=== PATIENT | male | born 1970 | race Caucasian/White ===

== ENCOUNTER 2021-03-20 09:32 | Outpatient (CLI) | payer OTHER ==
[2021-03-20 10:44] LABS: #Basophils 0.1 10x3/uL (0.0-0.2); #Eosinphils 0.1 10x3/uL (0.0-0.5); #Monocytes 0.9 10x3/uL (0.0-1.1); #Neutrophils 7.2 10x3/uL (1.5-8.4); %Basophils 1.2 % (0.0-2.0); %Eosinophils 0.7 % (0.0-6.0); %Monocytes 7.6 % (0.0-10.0); %Neutrophils 63.5 % (40.0-75.0); Hemoglobin 14.7 g/dL (13.5-17.5); Mean Corpuscular HGB CONC 34.9 g/dL (32.0-36.0); Mean Corpuscular Hemoglobin 34.6 pg (27.0-33.0); Mean Corpuscular Volume 99.1 fl (81.2-95.1); Mean Platelet Volume 9.4 fl (7.4-10.4); Platelet Count 247 10x3/uL (150-450); Red Blood Cell (RBC) Count 4.25 10x6/uL (4.32-5.72); White Blood Cell (WBC) Count 11.4 10x3/uL (3.5-10.5)
[2021-03-20 10:54] LABS: Anion Gap 14 mmol/L (10-20); BUN (Urea Nitrogen) 13 mg/dL (8.4-25.7); Calc. Creatinine Clearance 0 mL/min (70-130); Calcium 9.1 mg/dL (7.8-10.44); Carbon Dioxide 23 mmol/L (22-29); Chloride 106 mmol/L (98-107); Glucose 222 mg/dL (70-105); Potassium 3.8 mmol/L (3.5-5.1); Sodium 139 mmol/L (136-145)
[2021-03-21 01:01] LABS: SARS-CoV-2 PCR by NAA Not Detected (NotDetected)
== END 2021-03-20 09:33 | disposition home or self-care (01) ==
LOC: LABBT 09:32
PROVIDERS: ATTEND Specialist
DX: Z01.818 Encounter for other preprocedural examination (principal); C61 Malignant neoplasm of prostate; Z20.822 Contact with and (suspected) exposure to COVID-19
CPT/HCPCS: 80048; 85025; 93005; 93010; U0003; U0005

== ENCOUNTER 2021-03-23 12:01 | Day surgery (SDC) | payer OTHER ==
[2021-03-21 13:52] VITALS: BMI 32.8
[2021-03-23] MEDS ORDERED: Ketorolac Tromethamine 30 MG/ML VIAL ONE ×2 (12:25→15:30)
[2021-03-23] MEDS ORDERED: Acetaminophen 500 MG TAB ONE (12:25)
[2021-03-23] MEDS ORDERED: Fentanyl 100 MCG/2 ML VIAL ONE (15:04)
[2021-03-23] MEDS ORDERED: Lidocaine 1% (PF) 30 ML VIAL ONE (15:11)
[2021-03-23] MEDS ORDERED: Bupivacaine 0.25% HCL 30 ML VIAL ONE (15:11)
[2021-03-23] MEDS ORDERED: Lidocaine 1% w/Epinephrine 1:100K 30 ML VIAL ONE (15:11)
[2021-03-23] MEDS ORDERED: PHENYLEPHRINE-NS 100 MCG/ML 10 ML SYRINGE ONE (15:30)
[2021-03-23] MEDS ORDERED: Ondansetron PF 4 MG/2 ML Vial ONE (15:30)
[2021-03-23] MEDS ORDERED: Dexamethasone 20 MG/5 ML VIAL ONE (15:30)
[2021-03-23] MEDS ORDERED: PROPOFOL 200 MG/20 ML VIAL ONE (15:30)
[2021-03-23] MEDS ORDERED: Lidocaine 1% PF 5 ML VIAL ONE (15:30)
== END 2021-03-23 18:05 | disposition home or self-care (01) ==
LOC: SDC 12:01
PROVIDERS: ATTEND Specialist
PROC: 02HV33Z Insertion of Infusion Device into Superior Vena Cava, Percutaneous Approach (ICD-10-PCS; principal; 2021-03-23)
PROC: 0JH60WZ Insertion of Totally Implantable Vascular Access Device into Chest Subcutaneous Tissue and Fascia, Open Approach (ICD-10-PCS; principal; 2021-03-23)
DX: C61 Malignant neoplasm of prostate (principal); C79.51 Secondary malignant neoplasm of bone; I10 Essential (primary) hypertension; E11.9 Type 2 diabetes mellitus without complications; E78.5 Hyperlipidemia, unspecified; L40.9 Psoriasis, unspecified; K21.9 Gastro-esophageal reflux disease without esophagitis; G47.33 Obstructive sleep apnea (adult) (pediatric); Z87.891 Personal history of nicotine dependence; Z79.82 Long term (current) use of aspirin; Z79.84 Long term (current) use of oral hypoglycemic drugs; Z79.899 Other long term (current) drug therapy; Z01.818 Encounter for other preprocedural examination; Z20.822 Contact with and (suspected) exposure to COVID-19
CPT/HCPCS: 71045; 76000; 80048; 85025; 93005; 93010; C1788; J0690; J1100; J1642; J1885; J2001; J2405; J2704; J3010; S0020; U0003; U0005

== ENCOUNTER 2021-12-20 08:56 | Outpatient (CLI) | payer BC ==
[2021-12-20 09:28] LABS: Estimated GFR-MDRD - POC Greater than 90
== END 2021-12-20 08:57 | disposition home or self-care (01) ==
LOC: CT 08:56
PROVIDERS: ATTEND Internal Medicine Hematology & Oncology
DX: C61 Malignant neoplasm of prostate (principal); C79.51 Secondary malignant neoplasm of bone
CPT/HCPCS: 71260; 74177; 78306; 82565; A9503

== ENCOUNTER 2022-03-11 08:13 | Outpatient (CLI) | payer BC ==
[2022-03-11] MEDS ORDERED: Iopamidol 370 76% 100 ML VIAL ONE (09:40)
== END 2022-03-11 08:14 | disposition home or self-care (01) ==
LOC: CT 08:13
PROVIDERS: ATTEND Internal Medicine Hematology & Oncology
DX: C61 Malignant neoplasm of prostate (principal); C79.51 Secondary malignant neoplasm of bone; R91.8 Other nonspecific abnormal finding of lung field; E27.8 Other specified disorders of adrenal gland; K76.0 Fatty (change of) liver, not elsewhere classified
CPT/HCPCS: 71260; 74177; 78306; A9503; Q9967

== ENCOUNTER 2022-08-23 12:56 | Outpatient (CLI) | payer BC | END 2022-08-23 12:57 | disposition home or self-care (01) | LOC: SCSRAD 12:56 | PROVIDERS: ATTEND Internal Medicine Hematology & Oncology | DX: M79.651 Pain in right thigh (principal); M79.652 Pain in left thigh; C61 Malignant neoplasm of prostate; C79.51 Secondary malignant neoplasm of bone; R10.2 Pelvic and perineal pain; M54.50 Low back pain, unspecified | CPT/HCPCS: 72100; 72170 ==

== ENCOUNTER 2022-10-04 21:07 | Observation (INO) | payer BC ==
[2022-10-04 23:47] LABS: Hemoglobin 12.9 g/dL (14.0-18.0); Mean Corpuscular HGB CONC 33.7 g/dL (32.0-36.0); Mean Corpuscular Hemoglobin 33.6 pg (27.0-31.0); Mean Corpuscular Volume 99.8 fl (78.0-98.0); Mean Platelet Volume 6.7 fL (7.4-10.4); Platelet Count 254 10x3/uL (130-400); RBC Distribution Width 17.2 % (11.5-14.5); Red Blood Cell (RBC) Count 3.83 mill/uL (4.70-6.10)
[2022-10-04 23:52] LABS: ALT (SGPT) 25 U/L (8-55); AST (SGOT) 15 U/L (5-34); Albumin 3.9 g/dL (3.5-5.0); Alkaline Phosphatase 424 U/L (40-110); Anion Gap 17 mmol/L (10-20); BUN (Urea Nitrogen) 20 mg/dL (8.4-25.7); Bilirubin, Total 0.3 mg/dL (0.2-1.2); Calc. Creatinine Clearance 0 mL/min (70-130); Calcium 7.7 mg/dL (7.8-10.44); Carbon Dioxide 24 mmol/L (22-29); Chloride 101 mmol/L (98-107); Estimated GFR 113; Globulin 2.9 g/dL (2.4-3.5); Glucose 187 mg/dL (70-105); Potassium 3.7 mmol/L (3.5-5.1); Protein, Total 6.8 g/dL (6.0-8.3); Sodium 138 mmol/L (136-145)
[2022-10-05 00:25] LABS: Anisocytosis SLIGHT = 6-15 cells (100X) (0-5/hpf); Band 7 % (5-11); Lymphocytes 7 % (21-51); MDiff Complete? YES; Macrocytosis SLIGHT = 6-15 cells (100X) (0-5/hpf); Metamyelocyte 7 % (0-0); Monocytes 10 % (0-10); Myelocyte 1 % (0-0); Neutrophil 68 % (42-75); Nucleated RBC 2 % (0); Platelet Morphology Comment Appears Adequate; Polychromasia MODERATE = 3-4 cells (100X) (0-2/hpf); White Blood Cell (WBC) Count 24.1 10x3/uL (4.8-10.8)
[2022-10-05] MEDS ORDERED: Piperacillin/Tazobactam 4.5 GM VIAL ONE (00:58)
[2022-10-05] MEDS ORDERED: Ondansetron PF 4 MG/2 ML Vial ONE (00:58)
[2022-10-05] MEDS ORDERED: Morphine 4 MG/ML VIAL ONE ×2 (00:58→01:36)
[2022-10-05 01:49] LABS: PTT 23.2 sec (22.9-36.1); Prothrombin Time 13.6 sec (12.0-14.7)
[2022-10-05] MEDS ORDERED: Vancomycin 1 GM/200 ML (FROZEN) BAG ONE (02:46)
[2022-10-05 03:50] VITALS: BMI 29.5
[2022-10-05] MEDS ORDERED: HYDROcodone/Acetaminophen 10/325 mg Tablet PO PRN (05:31)
[2022-10-05] MEDS ORDERED: Furosemide 20 MG TAB PO SCH ×2 (06:00→09:00)
[2022-10-05] MEDS ORDERED: Amlodipine 10 MG TAB PO SCH (09:00)
[2022-10-05] MEDS ORDERED: Non-Formulary Item 1 EACH (Omeprazole [Omeprazole] 20 MG Capsule.Dr) PO SCH (09:00)
[2022-10-05] MEDS ORDERED: Hydrochlorothiazide 25 MG TAB PO SCH (09:00)
[2022-10-05] MEDS ORDERED: Senokot S 8.6-50 MG TAB PO PRN (11:09)
[2022-10-05] MEDS ORDERED: Bisacodyl 5 MG TAB PO PRN (11:09)
[2022-10-05] MEDS ORDERED: Furosemide 20 MG/2 ML VIAL SLOW IVP SCH ×2 (11:30→16:00)
[2022-10-05] MEDS ORDERED: Albumin 25% 25 GM/100 ML BOT IVPB SCH (11:30)
[2022-10-05] MEDS: Carvedilol 3.125 MG TAB PO SCH ×2 (11:33→21:02)
[2022-10-05] MEDS: Valsartan 80 MG TAB PO SCH (11:33)
[2022-10-05] MEDS: Cephalexin 250 MG CAP PO SCH ×2 (11:36→18:12)
[2022-10-05] MEDS: Hydrochlorothiazide 25 MG TAB PO SCH (11:36)
[2022-10-05] MEDS ORDERED: Dexamethasone 4 MG TAB PO SCH (11:45)
[2022-10-05] MEDS ORDERED: Morphine ER 30 MG TAB PO SCH (11:45)
[2022-10-05] MEDS ORDERED: Empagliflozin 25 MG TAB PO SCH (11:45)
[2022-10-05] MEDS: HYDROcodone/Acetaminophen 10/325 mg Tablet PO SCH ×2 (13:39→18:12)
[2022-10-05] MEDS ORDERED: Aspirin 81 mg Enteric Coated Tablet PO SCH (21:00)
[2022-10-05] MEDS ORDERED: metFORMIN XR 500 MG TAB PO SCH (21:00)
[2022-10-05] MEDS ORDERED: Tamsulosin HCl 0.4 MG CAP PO SCH (21:00)
[2022-10-05] MEDS: Famotidine 20 MG TAB PO SCH (21:02)
[2022-10-05] MEDS: Morphine ER 30 MG TAB PO SCH (21:02)
[2022-10-06] MEDS: Cephalexin 250 MG CAP PO SCH ×2 (00:01→06:11)
[2022-10-06] MEDS: HYDROcodone/Acetaminophen 10/325 mg Tablet PO SCH ×2 (00:01→06:12)
[2022-10-06] MEDS ORDERED: Furosemide 20 MG TAB PO SCH (06:00)
[2022-10-06] MEDS ORDERED: Furosemide 20 MG/2 ML VIAL SLOW IVP SCH (06:00)
[2022-10-06 06:24] LABS: Hemoglobin 11.7 g/dL (14.0-18.0); Mean Corpuscular HGB CONC 35.1 g/dL (32.0-36.0); Mean Corpuscular Hemoglobin 34.4 pg (27.0-31.0); Mean Corpuscular Volume 98.1 fl (78.0-98.0); Mean Platelet Volume 6.8 fL (7.4-10.4); Platelet Count 222 10x3/uL (130-400); RBC Distribution Width 17.5 % (11.5-14.5); White Blood Cell (WBC) Count 19.4 10x3/uL (4.8-10.8)
[2022-10-06 06:27] LABS: Anion Gap 14 mmol/L (10-20); BUN (Urea Nitrogen) 29 mg/dL (8.4-25.7); Calc. Creatinine Clearance 208 mL/min (70-130); Calcium 7.7 mg/dL (7.8-10.44); Carbon Dioxide 28 mmol/L (22-29); Chloride 97 mmol/L (98-107); Estimated GFR 113; Glucose 127 mg/dL (70-105); Potassium 3.2 mmol/L (3.5-5.1); Sodium 136 mmol/L (136-145)
[2022-10-06 06:50] LABS: Band 10 % (5-11); Lymphocytes 12 % (21-51); MDiff Complete? YES; Metamyelocyte 4 % (0-0); Monocytes 5 % (0-10); Myelocyte 5 % (0-0); Neutrophil 64 % (42-75); Nucleated RBC 1 % (0)
[2022-10-06] MEDS ORDERED: Potassium Bicarbonate/Cit Ac 20 MEQ TAB PO SCH (07:30)
[2022-10-06] MEDS ORDERED: Dexamethasone 4 MG TAB PO SCH (08:00)
[2022-10-06 08:45] VITALS: TEMP 97.7
[2022-10-06] MEDS ORDERED: Empagliflozin 25 MG TAB PO SCH (09:00)
[2022-10-06] MEDS: Morphine ER 30 MG TAB PO SCH (09:00)
[2022-10-06] MEDS: Famotidine 20 MG TAB PO SCH (09:02)
[2022-10-06] MEDS: Carvedilol 3.125 MG TAB PO SCH (09:28)
[2022-10-06] MEDS: Hydrochlorothiazide 25 MG TAB PO SCH (09:28)
[2022-10-06] MEDS: Valsartan 80 MG TAB PO SCH (09:29)
[2022-10-06 09:37] VITALS: BP 117/79
[2022-10-06] MEDS ORDERED: Relugolix [Orgovyx] 120 MG Tablet PO SCH (15:00)
== END 2022-10-06 11:25 | disposition home or self-care (01) ==
LOC: ERS 21:07 → MSONC 10-05 01:47
PROVIDERS: ADMIT Hospitalist; ATTEND Hospitalist
DX: L03.116 Cellulitis of left lower limb (principal); L03.115 Cellulitis of right lower limb; I10 Essential (primary) hypertension; E11.9 Type 2 diabetes mellitus without complications; E78.5 Hyperlipidemia, unspecified; K21.9 Gastro-esophageal reflux disease without esophagitis; D72.829 Elevated white blood cell count, unspecified; C61 Malignant neoplasm of prostate; C79.9 Secondary malignant neoplasm of unspecified site; Z87.891 Personal history of nicotine dependence; Z79.2 Long term (current) use of antibiotics; Z79.82 Long term (current) use of aspirin; Z79.84 Long term (current) use of oral hypoglycemic drugs; Z79.818 Long term (current) use of other agents affecting estrogen receptors and estrogen levels; Z79.891 Long term (current) use of opiate analgesic; Z79.899 Other long term (current) drug therapy
CPT/HCPCS: 36415; 71045; 80048; 80053; 83605; 85025; 85610; 85730; 87040; 96365; 96367; 96375; 96376; G0378; J1940; J2270; J2405; J2543; J3370-JW; J8540; P9047

== ENCOUNTER 2022-11-27 11:36 | Outpatient (CLI) | payer BC | END 2022-11-27 11:37 | disposition home or self-care (01) | LOC: SCSMRI 11:36 | PROVIDERS: ATTEND Internal Medicine Hematology & Oncology | DX: C61 Malignant neoplasm of prostate (principal); C79.51 Secondary malignant neoplasm of bone; H93.19 Tinnitus, unspecified ear; H92.09 Otalgia, unspecified ear; G89.3 Neoplasm related pain (acute) (chronic); G93.6 Cerebral edema | CPT/HCPCS: 70553 ==

== ENCOUNTER 2023-03-19 09:21 | Inpatient (IN) | payer BC ==
[2023-03-19] MEDS ORDERED: fentaNYL 50 mcg/mL 1 mL Vial ONE ×3 (09:34→12:36)
[2023-03-19] MEDS ORDERED: Ondansetron PF 4 MG/2 ML Vial ONE (09:34)
[2023-03-19 09:46] LABS: #Monocytes 0.9 thou/uL (0.11-0.59); #Neutrophils 4.4 thou/uL (1.40-6.50); %Basophils 0.4 % (0.0-1.0); %Eosinophils 0.4 % (0.0-10.0); %Lymphocytes 20.4 % (21.0-51.0); %Monocytes 12.2 % (0.0-10.0); %Neutrophils 61.8 % (42.0-75.0); Hematocrit 26.1 % (42.0-52.0); Hemoglobin 8.6 g/dL (14.0-18.0); Mean Corpuscular Hemoglobin 33.9 pg (27.0-31.0); Mean Corpuscular Volume 102.8 fl (78.0-98.0); RBC Distribution Width 20.1 % (11.5-14.5); Red Blood Cell (RBC) Count 2.54 mill/uL (4.70-6.10); White Blood Cell (WBC) Count 7.1 10x3/uL (4.8-10.8)
[2023-03-19 09:53] LABS: Platelet Count 4 10x3/uL (130-400)
[2023-03-19] MEDS ORDERED: HYDROmorphone 0.5 MG/0.5 ML SYRINGE ONE (10:10)
[2023-03-19 10:12] LABS: Troponin I Less than 0.010 ng/mL (< 0.028)
[2023-03-19 10:14] LABS: ALT (SGPT) 49 U/L (8-55); AST (SGOT) 69 U/L (5-34); Albumin 3.7 g/dL (3.5-5.0); Alkaline Phosphatase 917 U/L (40-110); Anion Gap 19 mmol/L (10-20); BUN (Urea Nitrogen) 28 mg/dL (8.4-25.7); Bilirubin, Total 1.1 mg/dL (0.2-1.2); Calc. Creatinine Clearance 0 mL/min (70-130); Carbon Dioxide 22 mmol/L (22-29); Chloride 100 mmol/L (98-107); Estimated GFR 111; Globulin 3.3 g/dL (2.4-3.5); Glucose 142 mg/dL (70-105); Lipase 5 U/L (8-78); Potassium 3.8 mmol/L (3.5-5.1); Sodium 137 mmol/L (136-145)
[2023-03-19] MEDS ORDERED: Cefepime 2 GM VIAL ONE (11:22)
[2023-03-19] MEDS ORDERED: AFRIN NASAL MIST 15 ML BOT NS PRN (11:24)
[2023-03-19 11:26] LABS: Bacteria/HPF None Seen HPF (None Seen); Bilirubin Negative (Negative); Blood, Urine Trace (Negative); CAUTI Indications for Culture Immunosuppressed; Clarity Clear (Clear); Glucose, Urine (Dipstick) Greater than 1000 mg/dL (Negative); Ketone, Urine 150 mg/dL (Negative); Leukocyte Negative Leu/uL (Negative); Nitrite Negative (Negative); Protein, Urine (Dipstick) Negative (Neg-Trace); RBC/HPF 0-3 HPF (0-3); Specific Gravity, Urine 1.026 (1.002-1.036); Squamous Epithelial None Seen HPF (0-3); Urobilinogen Normal mg/dL (Less than 2); WBC/HPF 0-3 HPF (0-3)
[2023-03-19] MEDS ORDERED: Dextrose 50% Abboject 50 ML SYRINGE SLOW IVP PRN (11:27)
[2023-03-19] MEDS ORDERED: HumaLOG 300 UNITS/3 ML VIAL SC PRN ×2 (11:27)
[2023-03-19] MEDS ORDERED: Glucagon 1 MG/ML KIT IM PRN (11:27)
[2023-03-19] MEDS ORDERED: Dextrose 5% in Water 1,000 ML IV PRN (11:27)
[2023-03-19 11:28] LABS: Urine Culture Reflex Yes Yes
[2023-03-19] MEDS ORDERED: Calcium Carbonate 500 MG ChewTAB PO PRN (11:30)
[2023-03-19] MEDS ORDERED: Ondansetron ODT 4 MG TAB PO PRN (11:30)
[2023-03-19] MEDS ORDERED: Ondansetron PF 4 MG/2 ML Vial IVP PRN (11:30)
[2023-03-19] MEDS ORDERED: Sodium Chloride 0.9% 1,000 ML IV SCH (11:30)
[2023-03-19] MEDS ORDERED: Morphine 2 MG/ML VIAL SLOW IVP PRN ×2 (11:32→12:24)
[2023-03-19] MEDS ORDERED: Methyl Salicylate/Menthol 85 GM TUBE TOP PRN (12:10)
[2023-03-19] MEDS ORDERED: OxyCODONE IR 30 MG TAB PO PRN ×2 (12:15→12:23)
[2023-03-19] MEDS ORDERED: Polyethylene Glycol 3350 17 GM Packet PO PRN (12:17)
[2023-03-19] MEDS ORDERED: LORazepam 2 MG/ML SYR.(CARPUJECT) ONE (12:17)
[2023-03-19] MEDS ORDERED: Vancomycin 1 GM/200 ML (FROZEN) BAG ONE (12:17)
[2023-03-19] MEDS ORDERED: Morphine ER 15 MG TAB PO SCH ×3 (12:30→21:00)
[2023-03-19] MEDS ORDERED: Morphine ER 30 MG TAB PO SCH ×2 (12:30→21:00)
[2023-03-19] MEDS ORDERED: Dexamethasone 1 MG TAB PO SCH (12:30)
[2023-03-19] MEDS ORDERED: Aluminum & Magnesium Hydroxide 60 ML, Lidocaine 2% Viscous Solution 30 ML, diphenhydrAM... SSW PRN (12:32)
[2023-03-19 13:51] LABS: INR-International Normal Ratio 1.1; Prothrombin Time 14.6 sec (12.0-14.7)
[2023-03-19 13:52] LABS: PTT 33.8 sec (22.9-36.1)
[2023-03-19] MEDS: Carvedilol 6.25 MG TAB PO SCH (16:14)
[2023-03-19] MEDS: Sodium Chloride 0.65% Nasal 44 ML BOT EA NARE SCH ×2 (16:14→20:40)
[2023-03-19] MEDS ORDERED: Morphine 4 MG/ML VIAL SLOW IVP SCH (16:30)
[2023-03-19] MEDS ORDERED: Morphine 4 MG/ML VIAL SLOW IVP PRN (16:33)
[2023-03-19 17:46] VITALS: BMI 26.2
[2023-03-19] MEDS: Multivit, Therapeutic 1 TAB PO SCH (20:41)
[2023-03-19] MEDS: Tamsulosin HCl 0.4 MG CAP PO SCH (20:41)
[2023-03-19] MEDS: Cyanocobalamin (Vitamin B-12) 1,000 MCG TAB PO SCH (20:41)
[2023-03-19] MEDS: Doxycycline 100 MG CAP PO SCH (20:41)
[2023-03-19] MEDS: Folic Acid 1 MG TAB PO SCH (20:41)
[2023-03-19] MEDS: Senokot S 8.6-50 MG TAB PO SCH (20:42)
[2023-03-19] MEDS: Morphine ER 30 MG TAB PO SCH (20:42)
[2023-03-19] MEDS: oxyCODONE 5 MG TAB PO PRN (20:43)
[2023-03-19] MEDS: Bacitracin Zinc Ointment 30 gm TUBE TOP SCH (20:44)
[2023-03-19] MEDS ORDERED: BACITRACIN ZINC TP SCH (21:00)
[2023-03-19] MEDS ORDERED: Famotidine 20 MG TAB PO SCH (21:00)
[2023-03-20] MEDS: Cefepime 2 GM in Sodium Chloride 0.9% 100 ML IVPB SCH ×2 (00:43→11:18)
[2023-03-20] MEDS: oxyCODONE 5 MG TAB PO PRN ×5 (00:43→19:46)
[2023-03-20] MEDS: Acetaminophen 325 MG TAB PO PRN ×2 (02:07→18:10)
[2023-03-20 03:56] LABS: Hematocrit 23.5 % (42.0-52.0); Hemoglobin 7.4 g/dL (14.0-18.0); Mean Corpuscular HGB CONC 31.5 g/dL (32.0-36.0); Mean Corpuscular Hemoglobin 33.5 pg (27.0-31.0); Mean Platelet Volume 11.8 fL (7.4-10.4); RBC Distribution Width 20.1 % (11.5-14.5); Red Blood Cell (RBC) Count 2.21 mill/uL (4.70-6.10); White Blood Cell (WBC) Count 6.5 10x3/uL (4.8-10.8)
[2023-03-20 04:03] LABS: Platelet Count 12 10x3/uL (130-400)
[2023-03-20 04:04] LABS: Delete Auto Diff?? YES; Manual Diff?? YES
[2023-03-20 04:05] LABS: Mean Corpuscular Volume 106.3 fl (78.0-98.0)
[2023-03-20 04:17] LABS: Phosphorus 2.7 mg/dL (2.3-4.7)
[2023-03-20 04:22] LABS: ALT (SGPT) 38 U/L (8-55); AST (SGOT) 41 U/L (5-34); Albumin 3.3 g/dL (3.5-5.0); Alkaline Phosphatase 709 U/L (40-110); Anion Gap 19 mmol/L (10-20); BUN (Urea Nitrogen) 22 mg/dL (8.4-25.7); Bilirubin, Total 0.8 mg/dL (0.2-1.2); Calc. Creatinine Clearance 155 mL/min (70-130); Calcium 8.7 mg/dL (7.8-10.44); Carbon Dioxide 15 mmol/L (22-29); Chloride 107 mmol/L (98-107); Estimated GFR 107; Glucose 139 mg/dL (70-105); Magnesium 2.2 mg/dL (1.6-2.6); Protein, Total 6.3 g/dL (6.0-8.3); Sodium 137 mmol/L (136-145)
[2023-03-20 04:41] LABS: Anisocytosis MODERATE=16-30 cells HPF (0-5); Band 5 % (5-11); Burr Cells SLIGHT = 2-5 cells HPF (0-1); CellaVision Operator ID lab.sh2; Lymphocytes 16 % (21-51); Macrocytosis MODERATE=16-30 cells HPF (0-5); Monocytes 13 % (0-10); Neutrophil 66 % (42-75); Platelet Adequacy Comment Significant decrease; Polychromasia SLIGHT = 2-3 cells HPF (0-2); Reactive Lymphocytes 1 % (0-10); Smudge Cells 14.7 %; Total Cell Count 109
[2023-03-20] MEDS: Carvedilol 6.25 MG TAB PO SCH ×2 (09:34→17:06)
[2023-03-20] MEDS: Senokot S 8.6-50 MG TAB PO SCH ×2 (09:34→21:15)
[2023-03-20] MEDS: Empagliflozin 25 MG TAB PO SCH (09:35)
[2023-03-20] MEDS: Morphine ER 30 MG TAB PO SCH ×2 (09:35→21:15)
[2023-03-20] MEDS: Doxycycline 100 MG CAP PO SCH (09:35)
[2023-03-20] MEDS: Sodium Chloride 0.65% Nasal 44 ML BOT EA NARE SCH ×3 (09:36→21:13)
[2023-03-20] MEDS: Bacitracin Zinc Ointment 30 gm TUBE TOP SCH ×3 (09:36→21:14)
[2023-03-20] MEDS: Temazepam 15 MG CAP PO PRN (21:14)
[2023-03-20] MEDS: Multivit, Therapeutic 1 TAB PO SCH (21:15)
[2023-03-20] MEDS: Folic Acid 1 MG TAB PO SCH (21:15)
[2023-03-20] MEDS: Cyanocobalamin (Vitamin B-12) 1,000 MCG TAB PO SCH (21:15)
[2023-03-20] MEDS: Tamsulosin HCl 0.4 MG CAP PO SCH (21:16)
[2023-03-21] MEDS: oxyCODONE 5 MG TAB PO PRN ×2 (01:31→04:45)
[2023-03-21] MEDS: Acetaminophen 325 MG TAB PO PRN (02:29)
[2023-03-21 04:04] LABS: Hematocrit 20.7 % (42.0-52.0); Mean Corpuscular HGB CONC 33.8 g/dL (32.0-36.0); Mean Corpuscular Volume 100.5 fl (78.0-98.0); RBC Distribution Width 19.7 % (11.5-14.5); Red Blood Cell (RBC) Count 2.06 mill/uL (4.70-6.10); White Blood Cell (WBC) Count 5.4 10x3/uL (4.8-10.8)
[2023-03-21 04:16] LABS: Platelet Count 12 10x3/uL (130-400)
[2023-03-21 04:17] LABS: Delete Auto Diff?? YES; Manual Diff?? YES
[2023-03-21 04:27] LABS: ALT (SGPT) 42 U/L (8-55); AST (SGOT) 42 U/L (5-34); Albumin 3.3 g/dL (3.5-5.0); Alkaline Phosphatase 701 U/L (40-110); Anion Gap 13 mmol/L (10-20); BUN (Urea Nitrogen) 27 mg/dL (8.4-25.7); Bilirubin, Total 0.8 mg/dL (0.2-1.2); Calc. Creatinine Clearance 203 mL/min (70-130); Calcium 9.4 mg/dL (7.8-10.44); Carbon Dioxide 23 mmol/L (22-29); Chloride 105 mmol/L (98-107); Estimated GFR 117; Globulin 2.9 g/dL (2.4-3.5); Glucose 166 mg/dL (70-105); Potassium 3.9 mmol/L (3.5-5.1); Protein, Total 6.2 g/dL (6.0-8.3); Sodium 137 mmol/L (136-145)
[2023-03-21 05:06] LABS: Anisocytosis SLIGHT = 6-15 cells HPF (0-5); Band 10 % (5-11); CellaVision Operator ID lab.abc; Eosinophils 1 % (0-10); Lymphocytes 11 % (21-51); Macrocytosis SLIGHT = 6-15 cells HPF (0-5); Monocytes 9 % (0-10); Myelocyte 1 % (0-0); Neutrophil 69 % (42-75); Platelet Adequacy Comment Platelets Decreased; Smudge Cells 8.6 %; Total Cell Count 105
[2023-03-21] MEDS: Morphine ER 30 MG TAB PO SCH ×2 (08:52→21:07)
[2023-03-21] MEDS: Carvedilol 6.25 MG TAB PO SCH ×2 (08:52→17:46)
[2023-03-21] MEDS: Senokot S 8.6-50 MG TAB PO SCH ×2 (08:53→21:09)
[2023-03-21] MEDS: Sodium Chloride 0.65% Nasal 44 ML BOT EA NARE SCH ×3 (08:58→21:44)
[2023-03-21] MEDS: Bacitracin Zinc Ointment 30 gm TUBE TOP SCH ×3 (08:58→21:44)
[2023-03-21] MEDS: Empagliflozin 25 MG TAB PO SCH (09:08)
[2023-03-21] MEDS ORDERED: Morphine 4 MG/ML VIAL SLOW IVP PRN (10:25)
[2023-03-21] MEDS ORDERED: Morphine 4 MG/ML VIAL SLOW IVP SCH (10:45)
[2023-03-21] MEDS: Sodium Chloride 0.9% 1,000 ML IV SCH ×2 (11:20→21:38)
[2023-03-21] MEDS: oxyCODONE 5 MG TAB PO SCH ×3 (15:17→23:12)
[2023-03-21] MEDS: Temazepam 15 MG CAP PO PRN (21:05)
[2023-03-21] MEDS: Morphine ER 15 MG TAB PO SCH (21:08)
[2023-03-21] MEDS: Multivit, Therapeutic 1 TAB PO SCH (21:09)
[2023-03-21] MEDS: Folic Acid 1 MG TAB PO SCH (21:09)
[2023-03-21] MEDS: Tamsulosin HCl 0.4 MG CAP PO SCH (21:09)
[2023-03-21] MEDS: Cyanocobalamin (Vitamin B-12) 1,000 MCG TAB PO SCH (21:09)
[2023-03-22] MEDS: oxyCODONE 5 MG TAB PO SCH ×6 (03:25→23:43)
[2023-03-22 04:54] LABS: Hematocrit 25.7 % (42.0-52.0); Hemoglobin 8.5 g/dL (14.0-18.0); Mean Corpuscular HGB CONC 33.1 g/dL (32.0-36.0); Mean Corpuscular Hemoglobin 33.1 pg (27.0-31.0); Mean Platelet Volume 9.2 fL (7.4-10.4); RBC Distribution Width 20.7 % (11.5-14.5); Red Blood Cell (RBC) Count 2.57 mill/uL (4.70-6.10); White Blood Cell (WBC) Count 5.2 10x3/uL (4.8-10.8)
[2023-03-22 05:02] LABS: Delete Auto Diff?? YES; Platelet Count 4 10x3/uL (130-400)
[2023-03-22 05:03] LABS: Manual Diff?? YES
[2023-03-22 05:24] LABS: Anisocytosis MODERATE=16-30 cells HPF (0-5); Band 15 % (5-11); Burr Cells SLIGHT = 2-5 cells HPF (0-1); CellaVision Operator ID LAB.JMM; Eosinophils 1 % (0-10); Lymphocytes 17 % (21-51); Macrocytosis SLIGHT = 6-15 cells HPF (0-5); Metamyelocyte 2 % (0-0); Monocytes 10 % (0-10); Myelocyte 2 % (0-0); Neutrophil 54 % (42-75); Platelet Adequacy Comment Platelets Decreased; Polychromasia SLIGHT = 2-3 cells HPF (0-2); Smudge Cells 10.8 %; Total Cell Count 102
[2023-03-22] MEDS ORDERED: fentaNYL 50 mcg/mL 1 mL Vial SLOW IVP SCH (06:30)
[2023-03-22] MEDS: Senokot S 8.6-50 MG TAB PO SCH ×2 (08:04→21:11)
[2023-03-22] MEDS: Carvedilol 6.25 MG TAB PO SCH ×2 (08:04→18:02)
[2023-03-22] MEDS: Empagliflozin 25 MG TAB PO SCH (08:04)
[2023-03-22] MEDS: Polyethylene Glycol 3350 17 GM Packet PO SCH (08:05)
[2023-03-22] MEDS: Morphine ER 30 MG TAB PO SCH ×2 (09:12→21:13)
[2023-03-22] MEDS: Morphine ER 15 MG TAB PO SCH ×2 (09:12→21:11)
[2023-03-22] MEDS: Sodium Chloride 0.9% 1,000 ML IV SCH ×3 (09:25→21:22)
[2023-03-22] MEDS ORDERED: Aluminum & Magnesium Hydroxide 60 ML, diphenhydrAMINE 150 MG, Lidocaine 2% Viscous Solu... SSW PRN (10:45)
[2023-03-22] MEDS: Bacitracin Zinc Ointment 30 gm TUBE TOP SCH ×3 (11:41→22:58)
[2023-03-22] MEDS: Sodium Chloride 0.65% Nasal 44 ML BOT EA NARE SCH ×3 (11:41→22:58)
[2023-03-22] MEDS ORDERED: fentaNYL 100 mcg/hour Patch TD SCH (12:15)
[2023-03-22] MEDS: Multivit, Therapeutic 1 TAB PO SCH (21:14)
[2023-03-22] MEDS: Tamsulosin HCl 0.4 MG CAP PO SCH (21:14)
[2023-03-22] MEDS: Cyanocobalamin (Vitamin B-12) 1,000 MCG TAB PO SCH (21:14)
[2023-03-22] MEDS: Folic Acid 1 MG TAB PO SCH (21:14)
[2023-03-23] MEDS: oxyCODONE 5 MG TAB PO SCH ×3 (03:46→11:35)
[2023-03-23 05:31] LABS: Hematocrit 20.8 % (42.0-52.0); Hemoglobin 6.9 g/dL (14.0-18.0); Mean Corpuscular HGB CONC 33.2 g/dL (32.0-36.0); Mean Corpuscular Hemoglobin 33.3 pg (27.0-31.0); Mean Corpuscular Volume 100.5 fl (78.0-98.0); Mean Platelet Volume 9.2 fL (7.4-10.4); RBC Distribution Width 20.5 % (11.5-14.5); Red Blood Cell (RBC) Count 2.07 mill/uL (4.70-6.10); White Blood Cell (WBC) Count 4.8 10x3/uL (4.8-10.8)
[2023-03-23 05:32] LABS: Platelet Count 10 10x3/uL (130-400)
[2023-03-23 05:33] LABS: Delete Auto Diff?? YES; Manual Diff?? YES
[2023-03-23 06:01] LABS: Anisocytosis SLIGHT = 6-15 cells HPF (0-5); Band 3 % (5-11); CellaVision Operator ID lab.abc; Large Platelets 1.9 % (0-5); Lymphocytes 11 % (21-51); Metamyelocyte 4 % (0-0); Monocytes 8 % (0-10); Myelocyte 2 % (0-0); Neutrophil 72 % (42-75); Nucleated RBC (Manual Ct) 1 % (0); Platelet Adequacy Comment Significant decrease; Smudge Cells 19.4 %; Total Cell Count 103
[2023-03-23] MEDS: Sodium Chloride 0.9% 1,000 ML IV SCH ×2 (06:36→19:55)
[2023-03-23] MEDS: Senokot S 8.6-50 MG TAB PO SCH ×2 (09:05→19:51)
[2023-03-23] MEDS: Carvedilol 6.25 MG TAB PO SCH ×2 (09:06→17:03)
[2023-03-23] MEDS: Empagliflozin 25 MG TAB PO SCH (09:06)
[2023-03-23] MEDS: Sodium Chloride 0.65% Nasal 44 ML BOT EA NARE SCH ×3 (09:13→19:54)
[2023-03-23] MEDS: Bacitracin Zinc Ointment 30 gm TUBE TOP SCH ×3 (09:15→19:54)
[2023-03-23] MEDS: Polyethylene Glycol 3350 17 GM Packet PO SCH (09:17)
[2023-03-23] MEDS: Morphine ER 15 MG TAB PO SCH (09:43)
[2023-03-23] MEDS: Morphine ER 30 MG TAB PO SCH ×3 (11:35→23:54)
[2023-03-23] MEDS: Morphine 4 MG/ML VIAL SLOW IVP PRN ×4 (16:10→22:54)
[2023-03-23] MEDS: oxyCODONE 5 MG TAB PO PRN ×4 (16:58→23:59)
[2023-03-23] MEDS: Tamsulosin HCl 0.4 MG CAP PO SCH (19:56)
[2023-03-23] MEDS: Multivit, Therapeutic 1 TAB PO SCH (19:56)
[2023-03-23] MEDS: Cyanocobalamin (Vitamin B-12) 1,000 MCG TAB PO SCH (19:57)
[2023-03-23] MEDS: Folic Acid 1 MG TAB PO SCH (19:57)
[2023-03-24] MEDS: Morphine 4 MG/ML VIAL SLOW IVP PRN ×5 (02:45→13:50)
[2023-03-24] MEDS: oxyCODONE 5 MG TAB PO PRN ×3 (04:15→11:33)
[2023-03-24 05:10] LABS: Hemoglobin 7.5 g/dL (14.0-18.0); Mean Corpuscular HGB CONC 32.6 g/dL (32.0-36.0); Mean Corpuscular Hemoglobin 32.3 pg (27.0-31.0); Mean Corpuscular Volume 99.1 fl (78.0-98.0); Red Blood Cell (RBC) Count 2.32 mill/uL (4.70-6.10); White Blood Cell (WBC) Count 4.6 10x3/uL (4.8-10.8)
[2023-03-24 05:21] LABS: Delete Auto Diff?? YES; Manual Diff?? YES; Platelet Count 3 10x3/uL (130-400)
[2023-03-24] MEDS: Sodium Chloride 0.9% 1,000 ML IV SCH (05:43)
[2023-03-24 05:54] LABS: Anisocytosis SLIGHT = 6-15 cells HPF (0-5); Band 15 % (5-11); Burr Cells SLIGHT = 2-5 cells HPF (0-1); CellaVision Operator ID LAB.JMM; Eosinophils 3 % (0-10); Lymphocytes 21 % (21-51); Macrocytosis MODERATE=16-30 cells HPF (0-5); Metamyelocyte 4 % (0-0); Monocytes 10 % (0-10); Myelocyte 1 % (0-0); Neutrophil 45 % (42-75); Nucleated RBC (Manual Ct) 1 % (0); Platelet Adequacy Comment Significant decrease; Polychromasia SLIGHT = 2-3 cells HPF (0-2); Reactive Lymphocytes 2 % (0-10); Smudge Cells 11.4 %; Total Cell Count 105
[2023-03-24] MEDS: Empagliflozin 25 MG TAB PO SCH (08:45)
[2023-03-24] MEDS: Carvedilol 6.25 MG TAB PO SCH (08:45)
[2023-03-24] MEDS: Sodium Chloride 0.65% Nasal 44 ML BOT EA NARE SCH ×2 (08:46→15:10)
[2023-03-24] MEDS: Bacitracin Zinc Ointment 30 gm TUBE TOP SCH ×2 (08:46→15:10)
[2023-03-24] MEDS: Senokot S 8.6-50 MG TAB PO SCH (09:45)
[2023-03-24] MEDS: Polyethylene Glycol 3350 17 GM Packet PO SCH (09:45)
[2023-03-24 11:48] VITALS: BP 135/84; TEMP 99.3
[2023-03-24] MEDS: Morphine ER 30 MG TAB PO SCH (12:40)
[2023-03-24] MEDS ORDERED: Lorazepam 2 MG/ML VIAL SLOW IVP PRN (14:42)
[2023-03-24] MEDS ORDERED: Morphine 4 MG/ML VIAL SLOW IVP SCH (14:45)
[2023-03-24] MEDS ORDERED: Morphine 4 MG/ML VIAL SLOW IVP PRN (15:08)
== END 2023-03-24 17:11 | disposition hospice, inpatient (51) | DRG 813 ==
LOC: ERS 09:21 → 2NO 12:30 → INTOOBSV 12:30 → OBSVTOIN 12:31 → SJJU 03-22 14:40
PROVIDERS: ADMIT Internal Medicine; ATTEND Internal Medicine
PROC: 6A550Z2 Pheresis of Platelets, Single (ICD-10-PCS; 2023-03-19)
PROC: 30233N1 Transfusion of Nonautologous Red Blood Cells into Peripheral Vein, Percutaneous Approach (ICD-10-PCS; principal; 2023-03-21)
DX: D69.59 Other secondary thrombocytopenia (principal); D62 Acute posthemorrhagic anemia; C79.51 Secondary malignant neoplasm of bone; R64 Cachexia; Z66 Do not resuscitate; K13.79 Other lesions of oral mucosa; Z51.5 Encounter for palliative care; R91.8 Other nonspecific abnormal finding of lung field; E11.9 Type 2 diabetes mellitus without complications; I10 Essential (primary) hypertension; G89.3 Neoplasm related pain (acute) (chronic); C61 Malignant neoplasm of prostate; R62.7 Adult failure to thrive; E78.5 Hyperlipidemia, unspecified; T45.1X5A Adverse effect of antineoplastic and immunosuppressive drugs, initial encounter; G89.4 Chronic pain syndrome; Z68.26 Body mass index [BMI] 26.0-26.9, adult; Z79.82 Long term (current) use of aspirin; Z79.899 Other long term (current) drug therapy; Z98.890 Other specified postprocedural states; Z87.891 Personal history of nicotine dependence; Z79.84 Long term (current) use of oral hypoglycemic drugs
CPT/HCPCS: 36415; 36416; 36430; 71045; 80053; 81001; 83605; 83690; 83735; 84100; 84484; 85025; 85610; 85730; 86850; 86900; 86901; 87040; 87086; 93005; 96361; 96365; 96366; 96368; 96375; 96376; G0378; J0692; J1170; J1815; J2060; J2270; J2405; J3010; J3370-JW; J3490; J7050; J8540; P9016; P9035

== ENCOUNTER 2023-03-24 17:29 | Inpatient (IN) | payer OTHER ==
[2023-03-24 17:44] VITALS: BMI 26.2
[2023-03-24] MEDS ORDERED: Lorazepam 2 MG/ML VIAL SLOW IVP PRN (17:52)
[2023-03-24] MEDS ORDERED: Scopolamine 1.5 mg/72 hour Patch TOP PRN (18:00)
[2023-03-24] MEDS ORDERED: Acetaminophen 325 MG TAB PO PRN (18:00)
[2023-03-24] MEDS ORDERED: Haloperidol Lactate 5 MG/ML VIAL SLOW IVP PRN (18:00)
[2023-03-24] MEDS ORDERED: Morphine 4 MG/ML VIAL SLOW IVP PRN (18:17)
[2023-03-24] MEDS ORDERED: fentaNYL 100 mcg/hour Patch TD SCH (18:30)
[2023-03-24] MEDS: Morphine 4 MG/ML VIAL SLOW IVP PRN ×2 (19:28→22:09)
[2023-03-24] MEDS: METHadone HCl 10 MG TAB PO SCH (19:29)
[2023-03-24] MEDS: Senokot S 8.6-50 MG TAB PO SCH (19:29)
[2023-03-24] MEDS ORDERED: Dexamethasone 1 MG TAB PO SCH (21:00)
[2023-03-24] MEDS ORDERED: Tamsulosin HCl 0.4 MG CAP PO SCH (21:00)
[2023-03-24] MEDS ORDERED: Morphine IR 10 MG/5 ML UDCUP FS SCH (23:00)
[2023-03-24] MEDS ORDERED: Lorazepam 2 MG/ML VIAL SLOW IVP SCH (23:00)
[2023-03-24] MEDS ORDERED: Morphine 4 MG/ML VIAL SLOW IVP SCH (23:45)
[2023-03-25] MEDS: Lorazepam 2 MG/ML VIAL SLOW IVP PRN ×3 (00:13→08:55)
[2023-03-25] MEDS: Morphine 4 MG/ML VIAL SLOW IVP PRN ×8 (03:22→22:41)
[2023-03-25] MEDS: Ondansetron PF 4 MG/2 ML Vial IVP PRN (03:22)
[2023-03-25] MEDS: levETIRAcetam 500 MG/5 ML VIAL SLOW IVP SCH ×2 (08:53→19:59)
[2023-03-25] MEDS: Dexamethasone 4 mg/ml Vial SLOW IVP SCH ×2 (08:53→19:59)
[2023-03-25] MEDS: Carvedilol 6.25 MG TAB PO SCH ×2 (08:54→12:17)
[2023-03-25] MEDS: Senokot S 8.6-50 MG TAB PO SCH ×2 (08:54→12:18)
[2023-03-25] MEDS: METHadone HCl 10 MG TAB PO SCH ×4 (08:54→20:03)
[2023-03-25] MEDS ORDERED: Empagliflozin 25 MG TAB PO SCH (09:00)
[2023-03-25] MEDS ORDERED: fentaNYL 100 mcg/hour Patch TD SCH (10:00)
[2023-03-25] MEDS: Lorazepam 2 MG/ML VIAL SLOW IVP SCH ×3 (14:45→22:41)
[2023-03-25] MEDS: METHadone HCl 10 MG TAB PR SCH ×2 (14:50→20:03)
[2023-03-25] MEDS: Atropine Sulfate 1% Ophth Soln 5 ml Bottle SL PRN (20:19)
[2023-03-26] MEDS: Ondansetron PF 4 MG/2 ML Vial IVP PRN (00:51)
[2023-03-26] MEDS: Morphine 4 MG/ML VIAL SLOW IVP PRN ×5 (00:51→11:24)
[2023-03-26] MEDS: Lorazepam 2 MG/ML VIAL SLOW IVP SCH ×5 (04:16→18:31)
[2023-03-26] MEDS: Atropine Sulfate 1% Ophth Soln 5 ml Bottle SL PRN ×4 (04:16→09:10)
[2023-03-26] MEDS: METHadone HCl 10 MG TAB PO SCH ×2 (09:01→15:51)
[2023-03-26] MEDS: METHadone HCl 10 MG TAB PR SCH ×2 (09:03→15:51)
[2023-03-26] MEDS: levETIRAcetam 500 MG/5 ML VIAL SLOW IVP SCH (09:10)
[2023-03-26] MEDS: Dexamethasone 4 mg/ml Vial SLOW IVP SCH (09:10)
[2023-03-26 09:30] VITALS: BP 128/76; TEMP 99.6
[2023-03-26] MEDS ORDERED: GLYCOPYRROLATE/PF 0.2 MG/ML VIAL SLOW IVP PRN (12:34)
[2023-03-26] MEDS ORDERED: Scopolamine 1.5 mg/72 hour Patch TOP SCH (13:00)
== END 2023-03-26 20:00 | disposition expired | DRG 951 ==
LOC: SJJU 17:29
PROVIDERS: ADMIT Family Medicine; ATTEND Family Medicine
DX: Z51.5 Encounter for palliative care (principal); C61 Malignant neoplasm of prostate; D63.0 Anemia in neoplastic disease; Z66 Do not resuscitate; D69.6 Thrombocytopenia, unspecified; I10 Essential (primary) hypertension; E11.9 Type 2 diabetes mellitus without complications; E78.5 Hyperlipidemia, unspecified; R04.0 Epistaxis; D50.9 Iron deficiency anemia, unspecified; R45.1 Restlessness and agitation
CPT/HCPCS: J1100; J1953; J2060; J2270; J2405; J3490; J8540